=== PATIENT | female | born 1980 | race Caucasian/White ===

== ENCOUNTER 2019-12-04 15:34 | Observation (INO) | payer SELFPAY ==
[2019-12-04] VITALS (9 sets, daily range): BP systolic 112–141; BP diastolic 71–118; PULSE 101–152; RESP 14–100; TEMP 36.1–36.6; O2SAT 96–100; BMI 27.8; BMI 28.0
--- NOTE | 2019-12-04 15:36 | NURSING ---
NO OLD EKGS
--- NOTE | 2019-12-04 15:47 | EKG12_ITS ---
Test Reason : REPEAT Blood Pressure : / mmHG Vent. Rate : 151 BPM Atrial Rate : 151 BPM P-R Int : 124 ms QRS Dur : 076 ms QT Int : 250 ms P-R-T Axes : 047 042 060 degrees QTc Int : 396 ms Sinus tachycardia Otherwise normal ECG Confirmed by MILLY HAGEN, DAVID ([id number]), pictures editor XOCHITL PEDROZA ([id number]) on 12/06/2019 10:07:05 AM Referred By: Ella Remy Confirmed By:JAIME ATKINS MD
--- NOTE | 2019-12-04 15:50 | RAD_ITS ---
STUDY: X-RAY CHEST REASON FOR EXAM: Female, 39 years old. CP AND SOB, R ARM NUMBNESS FOR A FEW DAYS TECHNIQUE: AP portable COMPARISON: None. FINDINGS: The lungs are clear and expanded. There is no demonstrated pleural abnormality. Normal size heart. Normal mediastinum and diamond. Normal visualized pulmonary arteries. Normal visualized aortic arch and descending thoracic aorta. Normal visualized thoracic spine. Normal visualized ribs, clavicles, and shoulders. There is no demonstrated abnormality of the visualized soft tissue structures of the upper abdomen. RAD/Chest 1 View (Portable) IMPRESSION: Normal x-ray examination of the chest. Electronically Signed: Cisco Snyder MD at 16:09 EST , Service support ,
--- NOTE | 2019-12-04 15:58 | ED.DCSUM_ITS ---
- ER Visit Summary Date of Service: 12/04/19 Chief Complaint: Chest pain History of Present Illness: The patient is a 39 F who presents with chest pain that is been constant for the past few days. Patient describes the pain is sharp and stabbing. Patient also states it feels like heaviness. Patient state s the pain is over the substernal and left chest area. Patient states she has some tingling down her left arm. Patient states nothing makes her pain better or worse. Patient admits to some nausea and vomiting. Patient also admits to some shortness of breath and occasional cough. Patient states she feels lightheaded at times and feels like she might pass out. Patient also admits to feelings of her heart racing. Cardiac risk factors include a family history of coronary artery disease in her father in his 40s and she is a smoker. PE risk factors include cervical and ovarian cancer. Physical Examination: Vital signs are stable except for mild tachycardia of 111. Patient is afebrile. Patient is in no acute distress. Oral mucosa is pink and moist. Neck is supple. Trachea is midline. There is no JVD. Heart was regular and tachycardic. Lungs showed some mild rhonchi. There is good respiratory effort noted. Abdomen is soft. Bowel sounds are normal. There is no tenderness. Cranial nerves II through XII are intact. There are no focal motor or sensory deficits noted. There is no calf tenderness or edema. Test Results: EKG showed sinus tachycardia with a rate of 110. There are no acute ST or T wave changes. There are no prior EKGs available for comparison. CBC and basic metabolic profile within normal limits. Troponin was normal. D- dimer was normal. Emergency Department Course and Treatment: Patient would have episodes where she would feel some tightness in her chest and then felt like her heart was racing. Patient then developed sharp severe pain in her chest. Patient's heart rate would go up into the 150s to 170s when this episode would occur. These episodes have been intermittent here in the emergency department. Case was discussed with the hospitalist. Patient will be admitted to PCU for observation. Patient understood and was agreeable with the plan. All questions were answered. Disposition: Admit to hospital Impression: Chest pain This note was generated with [email or web address] dictation software. It may contain incorrect words, spelling, and punctuation that were not noted in review of the chart prior to signing ED Disposition - Plan for ED Patient: Disposition: Acute Care Hospital [facility] Diagnosis: Chest pain
[2019-12-04 15:59] LABS: Absolute Lymphocyte Count 3.83 X10^3/uL (0.83-4.51); Absolute Neutrophil Count 6.1 X10^3/uL (2.0-7.7); Basophil# 0.07 X10^3/uL; Basophil% 0.6 % (0-1); Eosinophil# 0.44 X10^3/uL; Hematocrit 47.1 % (37-47); Hemoglobin 15.4 g/dL (12.0-15.0); Lymphocyte # 3.83 X10^3/ul (4.0); Lymphocyte % 34.6 % (19-41); Mean Corp Hgb Conc 32.7 g/dL (32-36); Mean Corpuscular Volume 94.8 fL (81-99); Monocyte# 0.63 X10^3/uL; Monocyte% 5.7 % (0-10); NRBC Flagged by Analyzer 0 % (0-5); Neutrophil # 6.05 X10^3/uL (2.7-7.7); Neutrophil % 54.6 % (47-70); Platelet Count 197 K/mm3 (150-450); RBC Distribution Width CV 12.1 % (11.6-14.6); RBC Distribution Width SD 42.2 fl (35.1-43.9); Red Blood Count 4.97 M/mm3 (4.2-5.4); White Blood Count 11.1 K/mm3 (4.4-11.0)
[2019-12-04 16:39] LABS: Anion Gap 6 (5-15); BUN 13 mg/dL (7-18); BUN/Creat Ratio 12.1 RATIO (10-20); Calcium,Total 9.5 mg/dL (8.5-10.1); Chloride 112 mmol/L (98-107); Creatinine, Serum 1.07 mg/dL (0.55-1.02); EST Glomerular Filtration Rate 61 mL/min (>60); Est Glom Filt Rate - Afr Amer 74 mL/min (>60); Estimated Creatinine Clearance 59.55 ml/min; Glucose 143 mg/dL (74-106); Potassium 3.6 mmol/L (3.5-5.1); Sodium Level 140 mmol/L (136-145)
[2019-12-04 16:51] LABS: D-Dimer Quantitative (DVT/PE) 0.35 FEU/ug/m (0.27-0.49)
[2019-12-04] MEDS: 0.9% Normal Saline 1,000 ML 1000 ML IV (16:51)
[2019-12-04] MEDS: Morphine 4 MG/ML Syringe IV (17:04)
[2019-12-04] MEDS: LORazepam 2 MG/ML Syringe 1 MG IV (17:06)
--- NOTE | 2019-12-04 17:15 | ED.RN ---
PT HR ALARM STARTED TO ALERT, HR 130'S. CHECKED PT, STATES SHE FEELS SOB. CALLED FOR EKG, AWARE. PT HR BEGAN INCREASING UP TO 170'S, PT BEGAN CLUTCHING CHEST AND C/O PAIN. MADE AWARE AGAIN, ORDERS OBTAINED.
[2019-12-04] MEDS: HYDROmorphone 0.5 MG/0.5 ML SYRINGE IV ×2 (18:14→21:53)
--- NOTE | 2019-12-04 18:25 | EKG12_ITS ---
Test Reason : CP Blood Pressure : / mmHG Vent. Rate : 110 BPM Atrial Rate : 110 BPM P-R Int : 152 ms QRS Dur : 080 ms QT Int : 328 ms P-R-T Axes : 051 045 078 degrees QTc Int : 443 ms Sinus tachycardia Otherwise normal ECG Confirmed by MILLY HAGEN, DAVID ([id number]), material expeditor XOCHITL PEDROZA ([id number]) on 12/06/2019 10:06:50 AM Referred By: Ella Remy Confirmed By:JAIME ATKINS MD
--- NOTE | 2019-12-04 19:17 | ED.RN ---
PATIENT AND FAMILY QUESTIONING WHAT WILL HAPPEN NEX. HER HEART RATE RUNS FROM THE ONE HUNDRED TEENS TO 120'S-130'S. WHEN I LOOKED AT PREVIOUS VITALS THIS HAS BEEN HER TREND. SHE HAS PAIN OF A 6/10 ALL OVER HER BODY AND SHE SAID THAT SHE HAS THESE EPISODES WHERE THE PAIN IS UNBEARABLE. I GOT THE PATIENT A BEDSIDE COMMODE FOR HER TO URINATE, HER SISTER IS IN THE ROOM WITH HER SHE DID NOT WANT THIS NURSE IN THE ROOM.
--- NOTE | 2019-12-04 19:34 | HP.PCM_ITS ---
Problem List (1) Chest pain Status: Acute Qualifiers: Chest pain type: unspecified Qualified Code(s): R07.9 - Chest pain, unspecified (2) Tobacco use Status: Chronic (3) Migraines Status: Chronic Qualifiers: Migraine type: unspecified Status migrainosus presence: without status migrainosus Intractability: not intractable Qualified Code(s): G43.909 - Migraine, unspecified, not intractable, without status migrainosus (4) Anxiety and depression Status: Chronic (5) History of ovarian cancer Status: Chronic (6) History of cervical cancer Status: Chronic History of Present Illness Date of Admission: 12/04/19 Chief Complaint: Chest pain The patient is a 39 y/o F w/ PMHx: Tobacco use, Hx migraines, Fibromyalgia, Anxiety and Depression, Hx Cervical CA 2000 and 2006 and Ovarian CA 2010 who presents to the [facility] ED on 12/04/19 with history of dyspnea as well as chest discomfort, ongoing x 2-3 days, L upper chest, notes sharp and stabbing intermittently 10/10 in severity but also ongoing heaviness concurrently described as a pressure, rated 1-2/10 in severity with intermittent nausea and emesis rarely, no diaphoresis, but noted associated RUE paresthesias with the worsened sharp stabbing episodes as well as palpitations, notes it happens while at rest and active. In the ED she was noted to have notable sinus tachycardia with onset of her more severe, sharp 10/10 chest pain symptoms with repeat EKG during with sinus tachycardia noted and improvement of rate once pain improved. Work-up in the ED included T 97.2, heart rate 152, BP 144/83, respiratory rate 25, 98% on 1 L nasal cannula, CBC with WBC 11.1, hemoglobin 15.4, platelet 197 without shift, d-dimer 0.35, BMP with chloride 112, BUN/creatinine 13/1.07, glucose 143, troponin less than 0.015, chest x-ray with no acute cardiopulmonary findings, EKG was sinus tachycardia with no acute ST or T wave changes with no comparison available. In the ED patient administered normal saline, morphine 4 mg IV x1, Ativan 1 mg IV x1 followed by Dilaudid 0.5 mg IV x1. Discussed with ED staff and given history of cancer and atypical presentation, CTPA ordered with benadryl 50 mg IV x 1 as well as solumedrol 60 mg IV x [address] contrast allergy with noted hives. CTPA obtained which was noted to be unremarkable with no evidence of PE or arterial dissection with no concerning findings and evidence status post cholecystectomy. Past Medical History Past Medical History (Chronic Problems): Chronic Problems Tobacco use (Chronic) Migraines (Chronic) Anxiety and depression (Chronic) History of ovarian cancer (Chronic) History of cervical cancer (Chronic) Allergies Iodinated Contrast Media [CONTRASTS] Allergy (Verified 12/04/19 15:38) Hives Home Medications: Ambulatory Orders Medication Instructions Recorded Buspirone HCl 10 mg PO TID PRN 12/04/19 Meloxicam 7.5 mg PO DAILY 12/04/19 Multivitamin with Minerals 1 tab PO DAILY 12/04/19 [Multiple Vitamin] Rizatriptan Benzoate [Rizatriptan] 10 mg PO PRN PRN 12/04/19 Surgical History: - - Total abdominal hysterectomy with salpingo-oophorectomy, cholecystectomy, appendectomy, tonsillectomy, ear tubes serial placements. Psychiatric History: Anxiety, Depression [employer] History: ovarian cancer, - - Concurrent history of cervical cancer. Lives: Alone Smoking Status: Current every day smoker - Patient continues to smoke cigarette tobacco, 1/2 pack/day since youth. Tobacco Use: Cigarettes Alcohol: None Drugs: None - *Family History Maternal History Items: - - Patient denies any market maternal family history including heart disease, diabetes or cancer. Paternal History Items: - - Patient notes a paternal family history of heart disease, IL, CAD, in his early 40s secondary to complications of IL as well as a paternal grandfather with similar history of IL and coronary disease, in his 80s. Review of Systems Constitutional: Reports: Malaise, Weakness, Fatigue. Denies: Anorexia, Chills, Fever, Weight Change HEENT: Reports: Head Aches. Denies: Sinus Congestion, Sinus Drainage Cardiovascular: Reports: Chest Pain, Chest Pressure, Chest Tightness, Heaviness. Denies: Light Headedness, Orthopnea, Palpitations, Syncope Respiratory: Reports: Shortness of Breath, Shortness of breath at rest, Shortness of breath upon exertion. Denies: Cough, Sputum production Gastrointestinal: Reports: Nausea, Vomiting. Denies: Abdominal Pain Genitourinary: Denies: Dysuria Musculoskeletal: Reports: Arm Pain, Joint Pain, Muscle pain. Denies: Joint Tenderness Skin: Denies: Rash, Wounds Neurological: Reports: Numbness, Tingling. Denies: Focal weakness Psychiatric: Reports: Anxiety, Depression. Denies: Homicidal Ideations, Suicidal Ideations Hematologic/ Lymphatic: Denies: Easy Bruising, Easy Bleeding VTE Information - Inpt Only VTE Present on Admission: No VTE Mechan Device Prophylaxis: SCD's VTE Pharm Prophylaxis ordered?: Yes Patient Problems: Active and Suspected Problems Chest pain (Acute) Subjective: Seated upright in ED bed, fatigued appearing but denies any current severe chest pain, ongoing pressure, 1-2 out of 10 in severity however comfortable appearing, eating food. Objective: Physical Examination: General: awake, alert, oriented x 3 and cooperative, seated upright in the ED bed in no apparent distress, notes chest pressure still present but improved from prior, 1-2 out of 10, eating, no apparent discomfort. Skin: normal color, turgor, no icterus, cyanosis, several tattoos. HEENT: AT/NC, EOMI, PERRLA, dry MM, no carotid bruits or JVD noted. Lungs: CTA bilaterally, moderate effort, moderate decrease BL bases, no rales, ronchi or wheezing. Heart: Mildly tachycardic with regular; no gallop, rub audible. Abdomen: soft, NTTP, ND, normal BS, no HSM. Extremities: no cyanosis, clubbing, or edema. Neurological: patient awake, alert, oriented x 3; cognitive function intact; pupils equally reactive to light and accomodation; cranial nerves II-XII grossly normal, moving all 4 extremities, no focal deficits, strength mildly global decrease secondary to acute complaints. Psychiatric: affect appears fatigued, no acute evidence of depressive or anxiety feelings. - Physical Exam Vitals/I&O's: Vital Signs Temp Pulse Resp BP Pulse Ox 97.2 F L 149 H 20 H 120/71 96 12/04/19 17:17 12/04/19 19:05 12/04/19 19:05 12/04/19 19:05 12/04/19 19:05 Oxygen Flow Rate (L/min) 1 Oxygen Delivery Method Nasal Cannula Weight: 157 lb Body Mass Index (BMI) 27.8 Intake and Output for Last 24 Hours 01/12/03/19 12/04/19 23:59 23:59 23:59 Intake Total 1000 / 1000 Balance 1000 / 1000 Laboratory Results 12/04/19 15:45: WBC 11.1 H, RBC 4.97, Hgb 15.4 H, Hct 47.1 H, MCV 94.8, MCH 31.0, MCHC 32.7, RDW Std Deviation 42.2, RDW Coeff of Sandra 12.1, Plt Count 197, MPV 12.0, Immature Gran % (Auto) 0.500, Neut % (Auto) 54.6, Lymph % (Auto) 34.6, Anson % (Auto) 5.7, Eos % (Auto) 4.0, Baso % (Auto) 0.6, Absolute Neuts (auto) 6.1, Absolute Lymphs (auto) 3.83, Nucleated RBC % 0 12/04/19 15:45: D-Dimer Quant (PE/DVT) 0.35 12/04/19 15:45: Sodium 140, Potassium 3.6, Chloride 112 H, Carbon Dioxide 22.0, Anion Gap 6, BUN 13, Creatinine 1.07 H, Estim Creat Clear Calc 59.55, Est GFR (MDRD) Af Amer 74, Est GFR (MDRD) Non-Af 61, BUN/Creatinine Ratio 12.1, Glucose 143 H, Calcium 9.5, Troponin I < 0.015 Assessment/Plan All Active Problems Chest pain (Acute) The patient is a 39 y/o F w/ PMHx: Tobacco use, Hx migraines, Fibromyalgia, Anxiety and Depression, Hx Cervical CA 2000 and 2006 and Ovarian CA 2010 who presents to the [facility] ED on 12/04/19 with history of dyspnea as well as chest discomfort, ongoing x 2-3 days, L upper chest, notes sharp and stabbing intermittently 10/10 in severity but also ongoing heaviness concurrently de scribed as a pressure, rated 1-2/10 in severity with intermittent nausea and emesis rarely, no diaphoresis, but noted associated RUE paresthesias with the worsened sharp stabbing episodes as well as palpitations. 1. Chest Pain: EKG in ED sinus tachycardia with no acute evidence of ischemia with repeat during more severe chest discomfort with no acute evidence of ischemia with increased rate, CXR w/ no acute cardiopulmonary findings and follow-up CTPA given underlying significant cancer history with no acute findings, initial trop normal x1. Will admit to PCU, place on a monitored bed to assure no acute myocardial infarction with serial cardiac enzymes and EKGs. If EKGs and repeat cardiac enzymes remain unremarkable will pursue a.m. cardiac stress echo. ASA, NG, morphine. FLP in a.m., magnesium pending. 2. Anxiety and depression: We will continue patient home BuSpar regimen, encourage continued follow-up outpatient with consideration of SNRI versus SSRI for more long-term control as well as outpatient therapy. 3. Migraine headaches: Patient notes significant issues with migraine headaches, denies any current, if necessary may add triptan but for interim especially given acute presentation will hold. 4. Fibromyalgia: Encouraged continued follow-up with her PCP outpatient, not any chronic regimen aside meloxicam which will be hold temporarily given acute chest pain presentation. 5. History of cervical cancer and ovarian cancer: Status post total abdominal hysterectomy and salpingo-oophorectomy, noted initial episode of cervical cancer 2000 and recurrent 2006, ovarian cancer noted 2010, remission. CTPA as noted obtained given history, no market findings. 6. Tobacco Abuse: Encouraged cessation, inpatient consultation per RT, NR if desired. 7. DVT prophylaxis: SCDs, Lovenox. Code Visit OBSV E&M: [id number] Initial observation care L3
--- NOTE | 2019-12-04 19:36 | ED.RN ---
DR SCRUGGS WAS MADE AWARE OF PATIENT'S PAIN. THIS NURSE HAS OBSERVED PATIENT IN AN EPISODE I WATCHED PATIENT CLENCH HER CHEST IN PAIN AND HER WHOLE BODY STARTED TO SHAKE. HER HEART RATE GOT UP TO THE 150'S BUT WAS SINUS TACHY. MADE AWARE OF THIS ALSO HE HAS REPORTED HE WITNESSED THE EPISODES. HE WOULD LIKE TO WAIT BEFORE HE GIVES HER ANYTHING ELSE.
[2019-12-04] MEDS: Aspirin 81 MG TAB.CHEW 324 MG PO (20:09)
[2019-12-04] MEDS: DiphenhydrAMINE 25 MG Capsule 50 MG PO (20:09)
--- NOTE | 2019-12-04 20:11 | ED.RN ---
PER DR. WOOD PATIENT TO HAVE 50 MG OF BENEDRYL PRIOR TO CT SCAN D/T PATIENT'S CONTRAST ALLERGY. PATIENT REPORTS SHE IS FINE IF SHE IS MEDICATED BEFORE.
[2019-12-04] MEDS: MethylPREDNISolone 125 MG/2 ML Vial 60 MG IV (20:26)
--- NOTE | 2019-12-04 20:30 | CT_ITS ---
STUDY: CTA CHEST REASON FOR EXAM: Female, 39 years old. CHEST PAIN INTO LEFT ARM X SEVERAL DAYS-WORSE TODAY. Pt has hives allergy to iodine-did fine with premed 60mg Solumedrol and 50mg Benadryl RADIATION DOSAGE (If Supplied By Facility): CTDIvol = ( 9.39 ) mGy, DLP = ( 377.91 ) mGycm TECHNIQUE: The examination was performed with the intravenous administration of Isovue 370 100ml. Post-processing of the angiographic images was performed, with multiplanar reformation and 3D reconstruction. Individualized dose optimization techniques were used for this CT. COMPARISON: Chest radiograph December 04, 2019 FINDINGS: Normal enhancement of the main pulmonary artery and right and left pulmonary arteries. Normal enhancement of the bilateral peripheral pulmonary arteries. There is no demonstrated pulmonary embolism. Normal thoracic aorta and visualized great vessels. There is no demonstrated aortic dissection. Normal heart and pericardium. Normal mediastinum. Normal hilar regions. Normal visualized trachea and bronchi. The lungs are well expanded. Normal pulmonary parenchyma. Normal pleura. Normal chest wall structures. Normal osseous structures. Gallbladder has been removed surgically. CT/CTA Chest W/WO Contrast IMPRESSION: Normal CTA chest examination, without a demonstrated pulmonary embolism or arterial dissection. Status post cholecystectomy Electronically Signed: Cisco Snyder MD at 20:56 EST , Service support ,
--- NOTE | 2019-12-04 20:45 | ED.RN ---
SOLUMEDROL 60 MG IV GIVEN PER DR. WOOD PER RADIOLOGY PROTOCOL PRIOR TO CT SCAN.
--- NOTE | 2019-12-04 20:49 | EKG12_ITS ---
Test Reason : CP ADMIT Blood Pressure : / mmHG Vent. Rate : 098 BPM Atrial Rate : 098 BPM P-R Int : 152 ms QRS Dur : 078 ms QT Int : 336 ms P-R-T Axes : 046 040 044 degrees QTc Int : 428 ms Normal sinus rhythm Normal ECG When compared with ECG of 04-DEC-2019 17:05, MANUAL COMPARISON REQUIRED, DATA IS UNCONFIRMED Confirmed by MILLY HAGEN, DAVID ([id number]), news copy editor XOCHITL PEDROZA ([id number]) on 12/06/2019 10:12:43 AM Referred By: Ella Remy Confirmed By:JAIME ATKINS MD
[2019-12-04 21:46] LABS: Magnesium 2.1 mg/dL (1.6-2.6); T4 Free Direct 0.78 ng/dL (0.76-1.46); Thyroid Stim Hormone (TSH) 1.74 uIU/mL (0.358-3.74)
[2019-12-04] MEDS: Famotidine 20 MG Tablet PO (21:54)
[2019-12-04] MEDS: 0.9% Normal Saline 1,000 ML 125 ML IV (21:56)
[2019-12-04 23:43] LABS: Amphetamine Urine VISTA NEGATIVE (<1000 ng/mL); Barbiturate Urine VISTA NEGATIVE (< 200 ng/mL); Benzodiazepine Urine VISTA NEGATIVE (< 200 ng/mL); Cocaine Urine VISTA NEGATIVE (< 300 ng/mL); Ecstacy Urine VISTA NEGATIVE (< 500 ng/mL); Methadone Urine VISTA NEGATIVE (< 300 ng/mL); PCP Urine VISTA NEGATIVE (< 25 ng/mL); THC Urine VISTA NEGATIVE (< 50 ng/mL); Vista UDS pH Range 6
[2019-12-05] VITALS (9 sets, daily range): BP systolic 99–109; BP diastolic 58–72; PULSE 64–140; RESP 18; TEMP 36.4–36.6; O2SAT 97–99
[2019-12-05 03:42] LABS: Absolute Lymphocyte Count 1.25 X10^3/uL (0.83-4.51); Absolute Neutrophil Count 7.6 X10^3/uL (2.0-7.7); Basophil# 0.03 X10^3/uL; Basophil% 0.3 % (0-1); Eosinophil# 0.02 X10^3/uL; Eosinophils% 0.2 % (0-5); Hematocrit 41.7 % (37-47); Hemoglobin 13.5 g/dL (12.0-15.0); Lymphocyte # 1.25 X10^3/ul (4.0); Lymphocyte % 13.8 % (19-41); Mean Corp Hgb Conc 32.4 g/dL (32-36); Mean Corpuscular Hgb 31.3 pg (27.0-32.0); Mean Corpuscular Volume 96.8 fL (81-99); Mean Platelet Vol. 12.3 fl (6.2-12.0); Monocyte# 0.08 X10^3/uL; Monocyte% 0.9 % (0-10); NRBC Flagged by Analyzer 0 % (0-5); Neutrophil # 7.61 X10^3/uL (2.7-7.7); Neutrophil % 84.2 % (47-70); Platelet Count 164 K/mm3 (150-450); RBC Distribution Width CV 12.2 % (11.6-14.6); RBC Distribution Width SD 43.5 fl (35.1-43.9); Red Blood Count 4.31 M/mm3 (4.2-5.4)
[2019-12-05 04:01] LABS: ALB/GLOB Ratio 1.2 RATIO (0.9-2.4); AST(SGOT) 10 U/L (15-37); Alanine Aminotransfer ALT/SGPT 25 U/L (13-56); Albumin, Serum 3.5 g/dL (3.2-5.0); Alkaline Phosphatase 64 U/L (45-117); Anion Gap 5 (5-15); BUN 14 mg/dL (7-18); BUN/Creat Ratio 14.1 RATIO (10-20); Calcium,Total 8.4 mg/dL (8.5-10.1); Chloride 112 mmol/L (98-107); Cholesterol 193 mg/dL (200); Creatinine, Serum 0.99 mg/dL (0.55-1.02); EST Glomerular Filtration Rate 67 mL/min (>60); Est Glom Filt Rate - Afr Amer 81 mL/min (>60); Estimated Creatinine Clearance 64.36 ml/min; Glucose 149 mg/dL (74-106); High Density Lipoprotein 37 mg/dL; Potassium 4.5 mmol/L (3.5-5.1); Protein, Total 6.5 g/dL (6.4-8.2); Sodium Level 140 mmol/L (136-145); Triglycerides 139 mg/dL; Very Low Density Lipoprotein 28 mg/dL (5-40)
[2019-12-05] MEDS: 0.9% Normal Saline 1,000 ML 125 ML IV ×2 (05:51→14:56)
[2019-12-05] MEDS: Aspirin 81 MG TAB.CHEW PO (05:51)
--- NOTE | 2019-12-05 05:55 | STEWCON_ITS ---
Reason For Study: chest pain Stress Results Protocol: Sage Protocol WITH DEFINITY Maximum Predicted HR: 183 bpm Target HR: 156 bpm % Maximum Predicted HR: 83 % Heart Stage Duration Rate BP Dose Comment (mm:ss) (bpm) baseline 69 102/601.00sharp chest pain 7 stage 1 3:00 114 108/64 same 7/10 sharp chest pain patient stopped suddenly stating that she feels like she is going stage 2 1:39 151 / to faint. Had to be held upright, near loss of consciousness. after lying back down, patient initially reported chest pain recovery 70 106/78 9 /10, short of breath and dizzy. Chest pain then returned to baseline 7/10 and dizzyness and shortness of breath resolved. Stress Duration: 4:39 mm:ss Maximum Stress HR: 151 bpm Baseline Echocardiogram Findings The estimated ejection fraction is 60 %. Stress Echo Wall motion Data Resting WM Intermediate WM Stress WM Resting Wall Motion Wall Motion Stress No regional wall motion No regional wall motion abnormalities noted. abnormalities noted. EKG Data The baseline ECG displays normal sinus rhythm. During stress, there were no ST or T wave changes noted to suggest ischemia. Symptoms with Stress The patient experinced 7/10 CP at rest that went up to 9/10. Pt. also had dizziness . Interpretation Summary The estimated ejection fraction is 60 %. The patient experinced 7/10 CP at rest that went up to 9/10. Pt. also had dizziness and near syncope at peak exercise. There as no drop in BP or HR at that time. Stress echo was negative stress induced EKG or echocardiographic changes of ischemia but was suboptimal due to inability to reach target heart rate and since images could not be obtained at peak exercise since patient was near syncopal. Ordering Physician: Reema Bray Referring Physician: Michael Miramontes MD Performed By: Marga Curtis, ELIZABETH, RVT
--- NOTE | 2019-12-05 05:55 | EKG12_ITS ---
Test Reason : AM EKG Blood Pressure : / mmHG Vent. Rate : 064 BPM Atrial Rate : 064 BPM P-R Int : 150 ms QRS Dur : 086 ms QT Int : 412 ms P-R-T Axes : 034 042 061 degrees QTc Int : 425 ms Normal sinus rhythm with sinus arrhythmia Normal ECG When compared with ECG of 04-DEC-2019 21:22, MANUAL COMPARISON REQUIRED, DATA IS UNCONFIRMED Confirmed by MILLY HAGEN, DAVID ([id number]), newspaper or periodical editor XOCHITL PEDROZA ([id number]) on 12/06/2019 10:10:31 AM Referred By: Ella Remy Confirmed By:JAIME ATKINS MD
[2019-12-05] MEDS: HYDROmorphone 0.5 MG/0.5 ML SYRINGE IV (07:20)
[2019-12-05 07:43] LABS: Hemoglobin A1c 5.5 % (4.2-6.3)
[2019-12-05] MEDS: busPIRone 5 MG Tablet 10 MG PO (08:07)
[2019-12-05] MEDS: oxyCODONE 5 MG Tablet 10 MG PO ×2 (08:07→12:12)
[2019-12-05] MEDS: Famotidine 20 MG Tablet PO (10:25)
--- NOTE | 2019-12-05 15:14 | CHAPLAIN ---
knocked on door and entered room seeing patient texting on phone, when asked about entering beyond curtain pt pretended to be sleeping and did not respond
--- NOTE | 2019-12-05 15:46 | DCINST_ITS ---
- Discharge Diagnoses Current Active Problems: Current Active and Chronic Problems Chest pain (Acute) Tobacco use (Chronic) Migraines (Chronic) Anxiety and depression (Chronic) History of ovarian cancer (Chronic) History of cervical cancer (Chronic) You will use the following diet at home:: No restrictions Discharge Activity: Return to Normal Activity Call your doctor if you observe: Shortness of breath, Dizziness, Fainting spells, Chest pain Allergies/Adverse Reactions: Allergies Iodinated Contrast Media [CONTRASTS] Allergy (Verified 12/04/19 15:38) Hives Medications to take at Discharge Buspirone HCl 10 mg PO TID PRN 12/04/19 Meloxicam 7.5 mg PO DAILY 12/04/19 Multivitamin with Minerals [Multiple Vitamin] 1 tab PO DAILY 12/04/19 Rizatriptan Benzoate [Rizatriptan] 10 mg PO PRN PRN 12/04/19 Primary Care Physician: Ella Remy PA [Primary Care Provider] - Please follow up with your Primary Care Physician in: 1 Week Test Results: Test results from this visit will be discussed in further detail at your follow- up appointment, if applicable. Proposed Discharge Date: 12/05/19
--- NOTE | 2019-12-05 15:49 | DS.PCM_ITS ---
<Demetria Dale - Last Filed: 12/05/19 15:55> Discharge Date and Diagnosis Date of Admission: 12/04/19 Date of Discharge: 12/05/19 - Primary Discharge Diagnosis Active and Suspected Problems 1. Musculoskeletal chest pain, ACS ruled out 2. Anxiety, depression 3. Migraine headaches 4. Fibromyalgia 5. History of cervical and ovarian cancer 5. Tobacco dependence - Secondary Discharge Diagnosis Chronic Problems Tobacco use (Chronic) Migraines (Chronic) Anxiety and depression (Chronic) History of ovarian cancer (Chronic) History of cervical cancer (Chronic) Hospital Course and Treatment Imaging Results: Diagnostic Data Chest X-Ray 12/04/19 15:50 IMPRESSION: Normal x-ray examination of the chest. Electronically Signed: Cisco Snyder MD at 16:09 EST , Service support , Chest CTA 12/04/19 20:30 IMPRESSION: Normal CTA chest examination, without a demonstrated pulmonary embolism or arterial dissection. Status post cholecystectomy Electronically Signed: Cisco Snyder MD at 20:56 EST , Service support , Operations: None Procedures: Stress test Summary of Care Provided: The patient is a 39 year old F admitted 12/04/2019 due to chest pain. 1. Musculoskeletal chest pain, ACS ruled out-left chest area tender to palpation. Troponin negative. EKG without ST-T changes. Patient underwent stress echo. During stress test there were no ST-T changes noted to suggest ischemia. Out stress echo negative for stress induced EKG or echo changes of ischemia however suboptimal due to inability to reach target heart rate as patient reported dizziness and chest pain during testing. Cardiac etiology ruled out. Follow-up with primary care physician in 1 week. 2. Anxiety, depression-continue BuSpar regimen. Recommend addition of SNRI or SSRI which can be discussed with PCP. 3. Migraine headaches, chronic 4. [id number] with PCP. 5. History of cervical and ovarian cancer-status post total abdominal hysterectomy and salpingo-oophorectomy. 5. Tobacco dependence- encouraged cessation. Patient seen and examined prior to discharge. Physical assessment as noted below. Patient is stable for discharge with follow up recommendations as noted above. This patient was seen by RENE Franklin under the supervision of Dr. Joya. - Physical Exam Vitals/I&O's: Vital Signs Temp Pulse Resp BP Pulse Ox 97.6 F L 73 18 101/59 L 98 12/05/19 12:02 12/05/19 14:59 12/05/19 12:02 12/05/19 12:02 12/05/19 12:02 Oxygen Flow Rate (L/min) 2 Oxygen Delivery Method Room Air Weight: 158 lb 1.143 oz Body Mass Index (BMI) 28.0 Intake and Output for Last 24 Hours 12/03/19 12/04/19 12/05/19 23:59 23:59 23:59 Intake Total 1000 / 1440 2829.58 / 2829.58 Balance 1000 / 1440 2829.58 / 2829.58 General: Alert, Oriented x3, Cooperative HEENT: Atraumatic, PERRLA, EOMI, Normocephalic Neck: Supple, No JVD, Negative Carotid Bruits Lungs: Clear to auscultation, Normal air movement Cardiovascular: Regular rate, No murmurs Abdomen: Bowel Sounds Present, Soft, Non Tender Extremities: No clubbing, No cyanosis, No edema, Capillary Refill Less than 3 Seconds Skin: No rashes, No breakdown Musculoskeletal: No Tenderness to Palpation of Joints or Extremities Neurological: Cranial nerves II-XII grossly intact, Neuro grossly intact Psych/Mental Status: Normal Affect, Appropriate Laboratory Results 12/04/19 15:45: WBC 11.1 H, RBC 4.97, Hgb 15.4 H, Hct 47.1 H, MCV 94.8, MCH 31.0, MCHC 32.7, RDW Std Deviation 42.2, RDW Coeff of Sandra 12.1, Plt Count 197, MPV 12.0, Immature Gran % (Auto) 0.500, Neut % (Auto) 54.6, Lymph % (Auto) 34.6, Taney % (Auto) 5.7, Eos % (Auto) 4.0, Baso % (Auto) 0.6, Absolute Neuts (auto) 6.1, Absolute Lymphs (auto) 3.83, Nucleated RBC % 0 12/04/19 15:45: D-Dimer Quant (PE/DVT) 0.35 12/04/19 15:45: Sodium 140, Potassium 3.6, Chloride 112 H, Carbon Dioxide 22.0, Anion Gap 6, BUN 13, Creatinine 1.07 H, Estim Creat Clear Calc 59.55, Est GFR (MDRD) Af Amer 74, Est GFR (MDRD) Non-Af 61, BUN/Creatinine Ratio 12.1, Glucose 143 H, Calcium 9.5, Troponin I < 0.015 12/04/19 15:45: Magnesium 2.1, TSH 1.74, Free T4 0.78 12/04/19 21:28: Troponin I < 0.015 12/04/19 22:45: Urine Opiates Screen POSITIVE H, Urine Methadone Screen NEGATIVE, Ur Barbiturates Screen NEGATIVE, Ur Phencyclidine Scrn NEGATIVE, Ur Amphetamines Screen NEGATIVE, U Methamphetamin-MDMA NEGATIVE, U Benzodiazepines Scrn NEGATIVE, Urine Cocaine Screen NEGATIVE, U Cannabinoids Screen NEGATIVE, Ur Drug Screen Comment 12/05/19 00:23: Troponin I < 0.015 12/05/19 03:20: WBC 9.0, RBC 4.31, Hgb 13.5, Hct 41.7, MCV 96.8, MCH 31.3, MCHC 32.4, RDW Std Deviation 43.5, RDW Coeff of Sandra 12.2, Plt Count 164, MPV 12.3 H, Immature Gran % (Auto) 0.600, Neut % (Auto) 84.2 H, Lymph % (Auto) 13.8 L, Taney % (Auto) 0.9, Eos % (Auto) 0.2, Baso % (Auto) 0.3, Absolute Neuts (auto) 7.6, Absolute Lymphs (auto) 1.25, Nucleated RBC % 0 12/05/19 03:20: Sodium Cancelled, Potassium Cancelled, Chloride Cancelled, Carbon Dioxide Cancelled, Anion Gap Cancelled, BUN Cancelled, Creatinine Cancelled, Estim Creat Clear Calc Cancelled, Est GFR (MDRD) Af Amer Cancelled, Est GFR (MDRD) Non-Af Cancelled, BUN/Creatinine Ratio Cancelled, Glucose Cancelled, Calcium Cancelled, Total Bilirubin Cancelled, AST Cancelled, ALT Cancelled, Alkaline Phosphatase Cancelled, Total Protein Cancelled, Albumin Cancelled, Globulin Cancelled, Albumin/Globulin Ratio Cancelled, Triglycerides Cancelled, Cholesterol Cancelled, LDL Cholesterol Cancelled, VLDL Cholesterol Cancelled, HDL Cholesterol Cancelled 12/05/19 03:20: Hemoglobin A1c 5.5 12/05/19 03:20: Sodium 140, Potassium 4.5, Chloride 112 H, Carbon Dioxide 23.0, Anion Gap 5, BUN 14, Creatinine 0.99, Estim Creat Clear Calc 64.36, Est GFR (MDRD) Af Amer 81, Est GFR (MDRD) Non-Af 67, BUN/Creatinine Ratio 14.1, Glucose 149 H, Calcium 8.4 L, Total Bilirubin 0.50, AST 10 L, ALT 25, Alkaline Phosphatase 64, Troponin I < 0.015, Total Protein 6.5, Albumin 3.5, Globulin 3.0, Albumin/Globulin Ratio 1.2, Triglycerides 139, Cholesterol 193, LDL Cholesterol 128, VLDL Cholesterol 28, HDL Cholesterol 37 L Current Medications Acetaminophen (Tylenol) 650 mg PO Q6H PRN PRN PRN Reason: Pain Score 1-3/Temp > 100.7 F Al Hydroxide/Mg Hydroxide (Mylanta Ii) 30 ml PO Q6H PRN PRN PRN Reason: Gastric Burning Albuterol Sulfate (Ventolin Aerosols) 2.5 mg INHALATION Q2H PRN PRN PRN Reason: dyspnea, wheezing Aspirin (Aspirin, Baby) 81 mg PO DAILY@0800 [facility] Last Admin: 12/05/19 05:51 Dose: 81 mg Documented by: Buspirone HCl (Buspar) 10 mg PO TID PRN PRN PRN Reason: ANXIETY Last Admin: 12/05/19 08:07 Dose: 10 mg Documented by: Enoxaparin Sodium (Lovenox) 40 mg SC DAILY [facility] Last Admin: 12/05/19 10:27 Dose: Not Given Documented by: Famotidine (Pepcid) 20 mg PO BID [facility] Last Admin: 12/05/19 10:25 Dose: 20 mg Documented by: Glucagon () 1 mg IM .X1 PRN PRN Reason: Hypoglycemia Guaifenesin (Robitussin) 20 ml PO Q4H PRN PRN PRN Reason: COUGH Hydralazine HCl (Apresoline Iv) 10 mg IV Q4H PRN PRN PRN Reason: SBP > 160 Hydromorphone HCl (Dilaudid Inj) 0.5 mg IV Q4H PRN PRN PRN Reason: Pain Score 6-10/10 Last Admin: 12/05/19 07:20 Dose: 0.5 mg Documented by: Sodium Chloride () 1,000 mls @ 125 mls/hr IV .Q8H [facility] Last Admin: 12/05/19 14:56 Dose: 125 mls/hr Documented by: Dextrose (Dextrose 10%-Water) 250 mls @ 999 mls/hr IV .Q16M PRN; Protocol PRN Reason: HYPOGLYCEMIA Nicotine (Nicoderm Cq (Pbkc)) 14 mg TRANSDERM. DAILY [facility] Last Admin: 12/04/19 22:38 Dose: Not Given Documented by: Nicotine Polacrilex ([facility] Nicotine (Bkc)) 2 mg PO Q2H PRN PRN PRN Reason: Nicotine Craving Nitroglycerin (Nitrostat) 0.4 mg SUBLINGUAL Q5M PRN PRN Reason: CARDIAC/CHEST PAIN Ondansetron HCl (Zofran) 4 mg IV Q8H PRN PRN PRN Reason: NAUSEA/VOMITING Oxycodone HCl (Oxyir) 10 mg PO Q4H PRN PRN PRN Reason: Pain Score 4-5/10 Last Admin: 12/05/19 12:12 Dose: 10 mg Documented by: Prochlorperazine Edisylate (Compazine Iv) 5 mg IV Q4H PRN PRN PRN Reason: Breakthrough Nausea/Vomiting Sodium Chloride () 10 - 40 ml IV UD PRN PRN Reason: SALINE FLUSH Temazepam (Restoril) 15 mg PO QHS PRN PRN PRN Reason: INSOMNIA Throat Lozenges (Cepacol Sore Throat Lozenge) 1 lozenge MUCOUS MEM Q2H PRN PRN PRN Reason: Sore Throat/Cough Discharge Diet: No Restrictions Discharge Activity: Return to Normal Activity Call your doctor if you observe: Shortness of breath, Dizziness, Fainting spells, Chest pain Home Medications: Medications to take at Discharge Buspirone HCl 10 mg PO TID PRN 12/04/19 Meloxicam 7.5 mg PO DAILY 12/04/19 Multivitamin with Minerals [Multiple Vitamin] 1 tab PO DAILY 12/04/19 Rizatriptan Benzoate [Rizatriptan] 10 mg PO PRN PRN 12/04/19 Primary Care Physician: Ella Remy PA [Primary Care Provider] - Please follow up with your Primary Care Physician in: 1 Week Disposition: Home Minutes spent on discharge:: 35 Patient Condition:: Stable Medical Necessity - Tobacco Use Smoking Status: Current every day smoker Tobacco Use: Cigarettes Meaningful Use Info Meaningful Use Diagnoses (Choose all that apply): None applicable <Deon Joya - Last Filed: 12/05/19 16:43> Discharge Date and Diagnosis - Secondary Discharge Diagnosis Chronic Problems Tobacco use (Chronic) Migraines (Chronic) Anxiety and depression (Chronic) History of ovarian cancer (Chronic) History of cervical cancer (Chronic) Hospital Course and Treatment Summary of Care Provided: This patient was seen in conjunction with RENE Franklin . I have independently interviewed and examined the patient and reviewed pertinent historical, laboratory, and other data. Please refer to RENE Franklin note for details of this patient's presentation, findings, and recommendations. I have reviewed RENE Franklin note and concur with documented findings. In brief, patient is a 39-year-old lady admitted with chest pain. Placed on a monitored bed did rule out NV with serial cardiac enzymes subsequently underwent a nuclear stress test which was negative for stress-induced ischemia Hospital course: As documented above - Physical Exam Vitals/I&O's: Vital Signs Temp Pulse Resp BP Pulse Ox 97.6 F L 73 18 101/59 L 98 12/05/19 12:02 12/05/19 14:59 12/05/19 12:02 12/05/19 12:02 12/05/19 12:02 Oxygen Flow Rate (L/min) 2 Oxygen Delivery Method Room Air Weight: 71.7 kg Body Mass Index (BMI) 28.0 Intake and Output for Last 24 Hours 12/03/19 12/04/19 12/05/19 23:59 23:59 23:59 Intake Total 1000 / 1440 2829.58 / 2829.58 Balance 1000 / 1440 2829.58 / 2829.58 Laboratory Results 12/04/19 15:45: D-Dimer Quant (PE/DVT) 0.35 12/04/19 15:45: Magnesium 2.1, TSH 1.74, Free T4 0.78 12/04/19 21:28: Troponin I < 0.015 12/04/19 22:45: Urine Opiates Screen POSITIVE H, Urine Methadone Screen NEGATIVE, Ur Barbiturates Screen NEGATIVE, Ur Phencyclidine Scrn NEGATIVE, Ur Amphetamines Screen NEGATIVE, U Methamphetamin-MDMA NEGATIVE, U Benzodiazepines Scrn NEGATIVE, Urine Cocaine Screen NEGATIVE, U Cannabinoids Screen NEGATIVE, Ur Drug Screen Comment 12/05/19 00:23: Troponin I < 0.015 12/05/19 03:20: WBC 9.0, RBC 4.31, Hgb 13.5, Hct 41.7, MCV 96.8, MCH 31.3, MCHC 32.4, RDW Std Deviation 43.5, RDW Coeff of Sandra 12.2, Plt Count 164, MPV 12.3 H, Immature Gran % (Auto) 0.600, Neut % (Auto) 84.2 H, Lymph % (Auto) 13.8 L, Taney % (Auto) 0.9, Eos % (Auto) 0.2, Baso % (Auto) 0.3, Absolute Neuts (auto) 7.6, Absolute Lymphs (auto) 1.25, Nucleated RBC % 0 12/05/19 03:20: Sodium Cancelled, Potassium Cancelled, Chloride Cancelled, Carbon Dioxide Cancelled, Anion Gap Cancelled, BUN Cancelled, Creatinine Cancelled, Estim Creat Clear Calc Cancelled, Est GFR (MDRD) Af Amer Cancelled, Est GFR (MDRD) Non-Af Cancelled, BUN/Creatinine Ratio Cancelled, Glucose Cancelled, Calcium Cancelled, Total Bilirubin Cancelled, AST Cancelled, ALT Cancelled, Alkaline Phosphatase Cancelled, Total Protein Cancelled, Albumin Cancelled, Globulin Cancelled, Albumin/Globulin Ratio Cancelled, Triglycerides Cancelled, Cholesterol Cancelled, LDL Cholesterol Cancelled, VLDL Cholesterol Cancelled, HDL Cholesterol Cancelled 12/05/19 03:20: Hemoglobin A1c 5.5 12/05/19 03:20: Sodium 140, Potassium 4.5, Chloride 112 H, Carbon Dioxide 23.0, Anion Gap 5, BUN 14, Creatinine 0.99, Estim Creat Clear Calc 64.36, Est GFR (MDRD) Af Amer 81, Est GFR (MDRD) Non-Af 67, BUN/Creatinine Ratio 14.1, Glucose 149 H, Calcium 8.4 L, Total Bilirubin 0.50, AST 10 L, ALT 25, Alkaline Phosphatase 64, Troponin I < 0.015, Total Protein 6.5, Albumin 3.5, Globulin 3.0, Albumin/Globulin Ratio 1.2, Triglycerides 139, Cholesterol 193, LDL Ch olesterol 128, VLDL Cholesterol 28, HDL Cholesterol 37 L Current Medications Acetaminophen (Tylenol) 650 mg PO Q6H PRN PRN PRN Reason: Pain Score 1-3/Temp > 100.7 F Al Hydroxide/Mg Hydroxide (Mylanta Ii) 30 ml PO Q6H PRN PRN PRN Reason: Gastric Burning Albuterol Sulfate (Ventolin Aerosols) 2.5 mg INHALATION Q2H PRN PRN PRN Reason: dyspnea, wheezing Aspirin (Aspirin, Baby) 81 mg PO DAILY@0800 [facility] Last Admin: 12/05/19 05:51 Dose: 81 mg Documented by: Buspirone HCl (Buspar) 10 mg PO TID PRN PRN PRN Reason: ANXIETY Last Admin: 12/05/19 08:07 Dose: 10 mg Documented by: Enoxaparin Sodium (Lovenox) 40 mg SC DAILY [facility] Last Admin: 12/05/19 10:27 Dose: Not Given Documented by: Famotidine (Pepcid) 20 mg PO BID [facility] Last Admin: 12/05/19 10:25 Dose: 20 mg Documented by: Glucagon () 1 mg IM .X1 PRN PRN Reason: Hypoglycemia Guaifenesin (Robitussin) 20 ml PO Q4H PRN PRN PRN Reason: COUGH Hydralazine HCl (Apresoline Iv) 10 mg IV Q4H PRN PRN PRN Reason: SBP > 160 Hydromorphone HCl (Dilaudid Inj) 0.5 mg IV Q4H PRN PRN PRN Reason: Pain Score 6-10/10 Last Admin: 12/05/19 07:20 Dose: 0.5 mg Documented by: Sodium Chloride () 1,000 mls @ 125 mls/hr IV .Q8H [facility] Last Admin: 12/05/19 14:56 Dose: 125 mls/hr Documented by: Dextrose (Dextrose 10%-Water) 250 mls @ 999 mls/hr IV .Q16M PRN; Protocol PRN Reason: HYPOGLYCEMIA Nicotine (Nicoderm Cq (Pbkc)) 14 mg TRANSDERM. DAILY [facility] Last Admin: 12/05/19 16:22 Dose: Not Given Documented by: Nicotine Polacrilex ([facility] Nicotine (Bkc)) 2 mg PO Q2H PRN PRN PRN Reason: Nicotine Craving Nitroglycerin (Nitrostat) 0.4 mg SUBLINGUAL Q5M PRN PRN Reason: CARDIAC/CHEST PAIN Ondansetron HCl (Zofran) 4 mg IV Q8H PRN PRN PRN Reason: NAUSEA/VOMITING Oxycodone HCl (Oxyir) 10 mg PO Q4H PRN PRN PRN Reason: Pain Score 4-5/10 Last Admin: 12/05/19 12:12 Dose: 10 mg Documented by: Prochlorperazine Edisylate (Compazine Iv) 5 mg IV Q4H PRN PRN PRN Reason: Breakthrough Nausea/Vomiting Sodium Chloride () 10 - 40 ml IV UD PRN PRN Reason: SALINE FLUSH Temazepam (Restoril) 15 mg PO QHS PRN PRN PRN Reason: INSOMNIA Throat Lozenges (Cepacol Sore Throat Lozenge) 1 lozenge MUCOUS MEM Q2H PRN PRN PRN Reason: Sore Throat/Cough Code Visit OBSV E&M: 71058 Observation care discharge
== END 2019-12-05 15:48 | disposition home or self-care (01) ==
LOC: ED 16:09 → PCU 20:19
PROVIDERS: Admitting Provider Family Medicine; Emergency Provider Emergency Medicine; PCP Physician Assistant Medical; Referring Provider Physician Assistant Medical; Visit Provider Internal Medicine
DX: R07.89 Other chest pain (principal); M79.7 Fibromyalgia; G43.909 Migraine, unspecified, not intractable, without status migrainosus; F41.9 Anxiety disorder, unspecified; F17.210 Nicotine dependence, cigarettes, uncomplicated; F32.9 Major depressive disorder, single episode, unspecified; R06.02 Shortness of breath; R11.2 Nausea with vomiting, unspecified; R42 Dizziness and giddiness; R00.0 Tachycardia, unspecified; Z85.43 Personal history of malignant neoplasm of ovary; Z85.41 Personal history of malignant neoplasm of cervix uteri; Z79.899 Other long term (current) drug therapy; Z82.49 Family history of ischemic heart disease and other diseases of the circulatory system
CPT/HCPCS: 36415; 71045; 71275; 80048; 80053; 80061; 80307; 83036; 83735; 84439; 84443; 84484; 85025; 85379; 93005; 93017; 93350; 96361; 96374; 96375; 96376; 99218; 99251; 99285; 99406; J7030; Q9957; Q9967; A4216; C8928; G0378; G0463